=== PATIENT | male | born 1955 | race Caucasian/White ===

== ENCOUNTER 2017-08-08 13:34 | Inpatient (IN) | payer MEDICAID ==
--- NOTE | 2017-08-08 13:59 | ED Physician Chart ---
ED Chief Complaint/HPI - Patient Information Date Seen:: 08/08/17 Time Seen:: 13:40 Chief Complaint:: AMS History of Present Illness:: onset x 2 days of cough, congestion, AMS, fever, and ALOC with abnormal labs last night; no report of trauma, H/As, S/T, neck pain, C/P, SOB, Abd. Pain, A/N/ V/D/C, chills, or urinary s/s; pt also has poor oral intake and failure to thrive x 3 days Historian:: Patient, EMS Review:: Nurse's Note Reviewed, EMS run form Reviewed ED Review of Systems - Review of Systems General/Constitutional: Fever, No chills, No weight loss, Weakness, No diaphoresis, No edema, No loss of appetite Skin: No skin lesions, No rash, No bruising Head: No headache, No light-headedness Eyes: No loss of vision, No pain, No diplopia ENT: No earache, No nasal drainage, No sore throat, No tinnitus Neck: No neck pain, No swelling, No thyromegaly, No stiffness, No mass noted Cardio Vascular: No chest pain, No palpitations, No PND, No orthopnea, No edema Pulmonary: No SOB, No cough, No sputum, No wheezing GI: No nausea, No vomiting, No diarrhea, No pain, No melena, No hematochezia, No constipation, No hematemesis G/U: No dysuria, No frequency, No hematuria, No nacturia Musculoskeletal: No bone or joint pain, No back pain, No muscle pain Endocrine: No polyuria, No polydipsia Psychiatric: No prior psych history, No depression, No anxiety, No suicidal ideation, No homicidal ideation, No auditory hallucination, No visual hallucination Hematopoietic: No bruising, No lymphadenopathy Allergic/Immuno: No urticaria, No angioedema Neurological: No syncope, No focal symptoms, Weakness, No paresthesia, No headache, No seizure, No dizziness, Confusion, No vertigo ED Past Medical History - Past Medical History Obtainable: Yes Past Medical History: HTN, PUD/GERD, Dementia, Other (Alzheimer's Disease) Family History: HTN Social History: Non Smoker, No Alcohol, No Drug Use, , Care Facility Surgical History: other (Tracheostomy) Psychiatricy History: Dementia Medication: Reviewed Family Medical History - Family Member Mother Living Status: ED Physical Exam - Physical Examination General/Constitutional: Awake, Well-developed, well-nourished, Alert, No distress, GCS 15, Non-toxic appearing, Ambulatory Head: Atraumatic Eyes: Lids, conjuctiva normal, PERRL, EOMI Skin: Nl inspection, No rash, No skin lesions, No ecchymosis, No lymphadenopathy Other Skin comments:: Poor turgor with dry MM ENMT: External ears, nose nl, TM canals nl, Nasal exam nl, Lips, teeth, gums nl , Oropharynx nl, Tonsils nl Neck: Nontender, Full ROM w/o pain, No JVD, No nuchal rigidity, No bruit, No mass, No stridor Respiratory: Nl effort/Exclusion, Clear to Auscultation, No Wheeze/Rhonchi/Rales Cardio Vascular: RRR, No murmur, gallop, rubs, NL S1 S2, Carotid/Femoral/Distal pulses equal bilaterally GI: No tenderness/rebounding/guarding, No organomegaly, No hernia, Normal BS's, Nondistended, No mass/bruits, No McBurney tenderness : No CVA tenderness Extremities: No tenderness or effusion, Full ROM, normal strength in all extremities, No edema, Normal digits & nails Neuro/Psych: DTR's symmetric, Normal sensory exam, Normal motor strength, Judgement/insight normal, Mood normal, Normal gait, No focal deficits Other Neuro/Psych comments:: Disoriented and Confused Misc: Normal back, No paraspinal tenderness ED Labs/Radiology/EKG Results - Lab Results Comments:: K+: 3.1 - Radiology Results Comments:: NAD - EKG Interpretations EKG Time:: 14:06 Rate & Rhythm: 74; NSR Comments:: PACs; non-specific st-t changes ED Septic Shock - . Is Septic Shock (SBP<90, OR Lactate>4 mmol\L) present?: No ED Reassessment (Disposition) - Reassessment Reassessment Condition:: Improved - Diagnosis Diagnosis:: Dx: Hypokalemia; Alzheimer's Disease; Dementia; Dehydration; Failure to Thrive; Poor Oral Intake; Sepsis; AMS; Lethargy - Aftercare/Follow up Instructions Aftercare/Follow-Up Instructions:: Counseled pt regarding lab results/diagnosis & need follow up, Counseled pt & family regarding lab results/diagnosis & need follow up - Patient Disposition Discharge/Transfer:: Acute Care w/in this hosp Accepting Physician:: Dr. Mojica Time Called:: 1600 Time Responded:: 16:00 Admitted to:: Med/Surg Spoke to:: Dr. Mojica Admitting Medical Physician:: Dr. Mojica Condition at Disposition:: Stable, Improved
--- NOTE | 2017-08-08 14:21 | Diagnostic Imaging Report ---
CHEST X-RAY: AP view INDICATION: pain COMPARISON: None FINDINGS: Suboptimal lung volume noted. There is no focal consolidation or pleural effusions The heart is normal in size. Mildly tortuous aorta is noted. Degenerative changes of the spine are noted. Gas-filled loops of bowel the upper abdomen are noted. An internal biliary stent is noted. IMPRESSION: Suboptimal lung with no focal consolidation identified.
[2017-08-08 14:33] LABS: % BASOPHILS 0.2 % (0.0-2.0); % EOSINOPHILS 0.3 % (0.0-5.0); % LYMPHOCYTES 15.1 % (20.0-50.0); % MONOCYTES 8.5 % (2.0-10.0); % NEUTROPHILS 75.9 % (40.0-80.0); LYMPHOCYTE ABSOLUTE 1.4 Th/cmm (1.5-3.0); MEAN CELL VOLUME 89.3 fl (80-99); MEAN CORPUSCULAR HEMOGLOBIN 29.7 pg (26.0-30.0); MEAN CORPUSCULAR HGB CONC 33.2 pg (28.0-36.0); MONOCYTE ABSOLUTE 0.8 Th/cmm (0.3-1.0); PLATELET COUNT 211 Th/cmm (150-400); RED BLOOD COUNT 4.03 Mil/cmm (4.30-5.70); RED CELL DISTRIBUTION WIDTH 15.4 % (11.5-20.0); WHITE BLOOD COUNT 9.2 Th/cmm (4.8-10.8)
[2017-08-08 14:45] LABS: INR 1.09 (0.5-1.4); PROTHROMBIN TIME (TEST) 11.4 SECONDS (9.5-11.5)
[2017-08-08 14:48] LABS: ALKALINE PHOSPHATASE 41 U/L (34-104); ANION GAP 9.2 (7.0-16.0); BILIRUBIN,TOTAL 0.6 mg/dL (0.3-1.0); BUN - UREA NITROGEN 17 mg/dL (7-25); CALCIUM SERUM 8.1 mg/dL (8.6-10.3); CARBON DIOXIDE 21.9 mEq/L (21.0-31.0); CHLORIDE 111 mEq/L (98-107); CHOLESTEROL 103 mg/dL (<200); CREATININE - SERUM 0.5 mg/dL (0.7-1.3); CREATININE KINASE 22 U/L (30-223); GFR AFRICAN-AMERICAN > 60.0 ml/min (>90); GFR NON AFRICAN-AMERICAN > 60.0 ml/min; GLUCOSE 137 mg/dL (70-105); HDL -HIGH DENSITY LIPOPROTEIN 33 mg/dL (23-92); POTASSIUM SERUM 3.1 mEq/L (3.5-5.1); SGOT 7 U/L (13-39); SGPT/ALT 6 U/L (7-52); SODIUM SERUM 139 mEq/L (136-145); TOTAL PROTEIN,SERUM 6.1 gm/dL (6.0-8.3); TRIGLYCERIDES 105 mg/dL (<150)
[2017-08-08] MEDS ORDERED: Potassium Chloride 20 mEq ER Tab PO ONE (16:51)
[2017-08-08] MEDS ORDERED: cefTRIAXone 1 GM in Sodium Chloride 0.9% 50 ML IV ONE (17:01)
[2017-08-08] MEDS ORDERED: Potassium Chloride Elixir 20 mEq /15 mL UDC ONE (17:12)
[2017-08-08] MEDS ORDERED: Potassium Chloride Elixir 20 mEq /15 mL UDC PO ONE (17:15)
[2017-08-08 21:27] VITALS: BP 112/88
[2017-08-08] MEDS ORDERED: Albuterol/Ipratropium Neb 3 ML AERS HHN SCH (23:00)
--- NOTE | 2017-08-08 23:58 | History & Physical ---
ADMIT DATE: 08/08/2017 HISTORY OF PRESENT ILLNESS: The patient apparently was sent from [facility]. They called me complaining that he has lost about 24 pounds less than a month and the patient complaining of cough, abdominal discomfort, and no chest pain, no other problem, was worked up in the Emergency Room and was admitted. REVIEW OF SYSTEMS: Essentially negative except for losing weight and failure to thrive. PAST MEDICAL HISTORY: Hypertension and history of dementia. PHYSICAL EXAMINATION: GENERAL: The patient is awake, alert, not in acute distress. VITAL SIGNS: Stable. HEAD: Normal. ENT: Normal. NECK: Supple and nontender. LUNGS: Clear. CARDIOVASCULAR SYSTEM: S1 and S2 heard. ABDOMEN: Soft. Bowel sounds are heard. CENTRAL NERVOUS SYSTEM: Grossly normal. LABORATORY DATA: The patient's EKG showed normal sinus rhythm. Potassium was low. DIAGNOSES: Hypokalemia, electrolyte imbalance, Alzheimer disease, dementia, dehydration, failure to thrive. PLAN: The patient is going to be worked up. We will have a neuro workup. We will have Psych see the patient as well as GI see the patient and I will follow the patient. JOB# [id number]
--- NOTE | 2017-08-09 04:24 | Consultation ---
DATE OF CONSULTATION: 08/08/2017 INFECTIOUS DISEASE CONSULTATION REFERRING PHYSICIAN: Sandy Mojica M.D. REASON FOR CONSULTATION: Failure to thrive, cough, bronchitis. HISTORY OF PRESENT ILLNESS: The patient is a 62-year-old male with past medical history of Alzheimer's disease, dementia, hypertension, brought in from nursing facility for failure to thrive.. He lost around 24 pounds in less than one month. The patient also complained of cough with abdominal comfortable. On initial evaluation, the patient's temperature was 97.6 degrees Fahrenheit and WBC count was 9200. Chest x-ray showed no focal consolidation. The patient's stated that the patient went to different hospital and his health is deteriorating significantly. PAST MEDICAL HISTORY: Includes hypertension, Alzheimer's dementia. ALLERGIES: NKDA. MEDICATIONS: As per medication reconciliation sheet. Antibiotic riddle, the patient has received Rocephin 1 g one dose. FAMILY HISTORY: Not available. SOCIAL HISTORY: The patient lives in a nursing facility, . No history of smoking, alcohol or drug use. PAST SURGICAL HISTORY: History of tracheostomy in the past. REVIEW OF SYSTEMS: The patient is unable to give any history only complaints are the patient is not eating well and losing weight. PHYSICAL EXAMINATION: VITAL SIGNS: Current vital signs shows temperature is 98 degrees Fahrenheit, pulse 74, respirations 18, blood pressure 112/88. GENERAL: The patient is comfortable lying in the bed, the patient's cachectic, not in acute distress. HEENT: Head is normocephalic, atraumatic. Bitemporal wasting. Sunken eyeball. Oral cavity moist, pink tongue. Eyes sunken eyeball. No pallor, no icterus. Pupils PERRLA. NECK: Supple, no JVD, no carotid bruit. Trachea in midline. CHEST: Bilateral breath sounds. No crackles or wheezing. HEART: S1, S2 within normal limits. Regular rhythm. No murmur, no gallop. ABDOMEN: Soft, nontender, nondistended. Bowel sounds present. EXTREMITIES: No cyanosis, no clubbing, no edema. NEUROLOGIC: The patient is unable to communicate. LABORATORY DATA: His current labs show WBC 9200, hemoglobin 12, hematocrit 36, platelets are 211,000, neutrophils 76%. INR 1.09, sodium 139, potassium 3.1, chloride 111, bicarbonate is 22, BUN is 17, creatinine is 0.5, glucose is 137. IMPRESSION: 1. Failure to thrive. 2. Protein-calorie malnutrition. 3. History of hypertension. 4. Bronchitis. RECOMMENDATIONS: We will check RPR, vitamin B12, TSH, and HIV. JOB# [id number]
[2017-08-09 07:26] LABS: % BASOPHILS 0.2 % (0.0-2.0); % EOSINOPHILS 0.5 % (0.0-5.0); % LYMPHOCYTES 20.3 % (20.0-50.0); % MONOCYTES 9.3 % (2.0-10.0); % NEUTROPHILS 69.7 % (40.0-80.0); HEMATOCRIT 37.2 % (41.0-60); HEMOGLOBIN 12.4 gm/dL (12-16); LYMPHOCYTE ABSOLUTE 1.8 Th/cmm (1.5-3.0); MEAN CELL VOLUME 89.5 fl (80-99); MEAN CORPUSCULAR HEMOGLOBIN 29.8 pg (26.0-30.0); MEAN CORPUSCULAR HGB CONC 33.3 pg (28.0-36.0); MEAN PLATELET VOLUME 10.5 fl; MONOCYTE ABSOLUTE 0.8 Th/cmm (0.3-1.0); NEUTROPHILE ABSOLUTE 6.3 Th/cmm (1.8-8.0); PLATELET COUNT 188 Th/cmm (150-400); RED BLOOD COUNT 4.15 Mil/cmm (4.30-5.70); RED CELL DISTRIBUTION WIDTH 15.1 % (11.5-20.0); WHITE BLOOD COUNT 8.9 Th/cmm (4.8-10.8)
[2017-08-09 07:42] LABS: ANION GAP 9.2 (7.0-16.0); BUN - UREA NITROGEN 13 mg/dL (7-25); CALCIUM SERUM 8.6 mg/dL (8.6-10.3); CARBON DIOXIDE 24.5 mEq/L (21.0-31.0); CHLORIDE 112 mEq/L (98-107); CHOLESTEROL 113 mg/dL (<200); CREATININE - SERUM 0.5 mg/dL (0.7-1.3); GFR AFRICAN-AMERICAN > 60.0 ml/min (>90); GFR NON AFRICAN-AMERICAN > 60.0 ml/min; GLUCOSE 87 mg/dL (70-105); HDL -HIGH DENSITY LIPOPROTEIN 36 mg/dL (23-92); POTASSIUM SERUM 3.7 mEq/L (3.5-5.1); SODIUM SERUM 142 mEq/L (136-145); TRIGLYCERIDES 103 mg/dL (<150)
--- NOTE | 2017-08-09 10:10 | General Progress Note ---
Subjective - Review of Systems Events since last encounter: in no acute distress patient admitted for failure to thrive, cough, bronchitis Objective - Results Result Diagrams: 08/09/17 06:16 08/09/17 06:16 Recent Labs: Laboratory Last Values WBC 8.9 Th/cmm (4.8-10.8) 08/09/17 06:16 RBC 4.15 Mil/cmm (4.30-5.70) L 08/09/17 06:16 Hgb 12.4 gm/dL (12-16) 08/09/17 06:16 Hct 37.2 % (41.0-60) L 08/09/17 06:16 MCV 89.5 fl (80-99) 08/09/17 06:16 MCH 29.8 pg (26.0-30.0) 08/09/17 06:16 MCHC Differential 33.3 pg (28.0-36.0) 08/09/17 06:16 RDW 15.1 % (11.5-20.0) 08/09/17 06:16 Plt Count 188 Th/cmm (150-400) 08/09/17 06:16 MPV 10.5 fl 08/09/17 06:16 Neutrophils % 69.7 % (40.0-80.0) 08/09/17 06:16 Lymphocytes % 20.3 % (20.0-50.0) 08/09/17 06:16 Monocytes % 9.3 % (2.0-10.0) 08/09/17 06:16 Eosinophils % 0.5 % (0.0-5.0) 08/09/17 06:16 Basophils % 0.2 % (0.0-2.0) 08/09/17 06:16 PT 11.4 SECONDS (9.5-11.5) 08/08/17 14:20 INR 1.09 (0.5-1.4) 08/08/17 14:20 PTT (Actin FS) 30.6 SECONDS (26.0-38.0) 08/08/17 14:20 Sodium 142 mEq/L (136-145) 08/09/17 06:16 Potassium 3.7 mEq/L (3.5-5.1) 08/09/17 06:16 Chloride 112 mEq/L (98-107) H 08/09/17 06:16 Carbon Dioxide 24.5 mEq/L (21.0-31.0) 08/09/17 06:16 Anion Gap 9.2 (7.0-16.0) 08/09/17 06:16 BUN 13 mg/dL (7-25) 08/09/17 06:16 Creatinine 0.5 mg/dL (0.7-1.3) L 08/09/17 06:16 Est GFR ( Amer) > 60.0 ml/min (>90) 08/09/17 06:16 Est GFR (Non-Af Amer) > 60.0 ml/min 08/09/17 06:16 BUN/Creatinine Ratio 26.0 08/09/17 06:16 Glucose 87 mg/dL (70-105) 08/09/17 06:16 Whole Bld Lactic Acid 1.60 mmol/L (0.60-1.99) 08/08/17 14:20 Calcium 8.6 mg/dL (8.6-10.3) 08/09/17 06:16 Total Bilirubin 0.6 mg/dL (0.3-1.0) 08/08/17 14:20 AST 7 U/L (13-39) L 08/08/17 14:20 ALT 6 U/L (7-52) L 08/08/17 14:20 Alkaline Phosphatase 41 U/L (34-104) 08/08/17 14:20 Creatine Kinase 22 U/L (30-223) L 08/08/17 14:20 Troponin I 0.01 ng/mL (0.01-0.05) 08/08/17 14:20 B-Natriuretic Peptide 18.3 pg/mL (5.0-100.0) 08/08/17 14:20 Total Protein 6.1 gm/dL (6.0-8.3) 08/08/17 14:20 Albumin 3.0 gm/dL (4.2-5.5) L 08/08/17 14:20 Globulin 3.1 gm/dL 08/08/17 14:20 Albumin/Globulin Ratio 1.0 (1.0-1.8) 08/08/17 14:20 Triglycerides 103 mg/dL (<150) 08/09/17 06:16 Cholesterol 113 mg/dL (<200) 08/09/17 06:16 LDL Cholesterol Direct 65 mg/dL (75-193) L 08/09/17 06:16 HDL Cholesterol 36 mg/dL (23-92) 08/09/17 06:16 TSH 0.37 uIU/ml (0.34-5.60) 08/09/17 06:16 - Physical Exam Vitals and I&O: Vital Signs Temp 96.4 F 08/09/17 07:43 Pulse 83 08/09/17 07:43 Resp 17 08/09/17 07:43 BP 165/86 08/09/17 07:43 Pulse Ox 94 08/09/17 07:43 Intake & Output 08/08/17 08/09/17 08/09/17 18:59 06:59 18:59 Intake Total 100 120 Balance 100 120 Weight (lbs) 58.202 kg Intake: Intake, IV Amount 100 Oral 120 Other: # Voids 3 Active Medications: Current Medications Acetaminophen (Tylenol) 650 mg PO Q4H PRN PRN Reason: pain/fever >101 Stop: 10/07/17 19:38 Albuterol/Ipratropium (Duoneb Neb) 3 ml HHN Q4HRT DAO Stop: 10/07/17 22:59 Diphenhydramine HCl (Benadryl) 25 mg PO QID PRN PRN Reason: Itching OR INSOMNIA Stop: 10/07/17 19:37 Last Admin: 08/08/17 20:13 Dose: 25 mg General: No acute distress HEENT: Atraumatic Neck: Supple Cardiovascular: Regular rate, Normal S1 Abdomen: Bowel sounds Assessment/Plan - Problem List Patient Problems: All Active Problems Alzheimer disease (Acute) G30.9 Dehydration (Acute) E86.0 Dementia (Acute) F03.90 Electrolyte abnormality (Acute) E87.8 Failure to thrive (Acute) [id number] Hypokalemia (Acute) E87.6 - Plan Plan: as per order sheet
--- NOTE | 2017-08-10 | Infectious Disease Prog Note ---
Infectious Disease Subjective - Review of Systems Service Date: 08/09/17 Subjective: no change. Infectious Disease Objective - Results Result Diagrams: 08/09/17 06:16 08/09/17 06:16 Recent Labs: Laboratory Last Values WBC 8.9 Th/cmm (4.8-10.8) 08/09/17 06:16 RBC 4.15 Mil/cmm (4.30-5.70) L 08/09/17 06:16 Hgb 12.4 gm/dL (12-16) 08/09/17 06:16 Hct 37.2 % (41.0-60) L 08/09/17 06:16 MCV 89.5 fl (80-99) 08/09/17 06:16 MCH 29.8 pg (26.0-30.0) 08/09/17 06:16 MCHC Differential 33.3 pg (28.0-36.0) 08/09/17 06:16 RDW 15.1 % (11.5-20.0) 08/09/17 06:16 Plt Count 188 Th/cmm (150-400) 08/09/17 06:16 MPV 10.5 fl 08/09/17 06:16 Neutrophils % 69.7 % (40.0-80.0) 08/09/17 06:16 Lymphocytes % 20.3 % (20.0-50.0) 08/09/17 06:16 Monocytes % 9.3 % (2.0-10.0) 08/09/17 06:16 Eosinophils % 0.5 % (0.0-5.0) 08/09/17 06:16 Basophils % 0.2 % (0.0-2.0) 08/09/17 06:16 PT 11.4 SECONDS (9.5-11.5) 08/08/17 14:20 INR 1.09 (0.5-1.4) 08/08/17 14:20 PTT (Actin FS) 30.6 SECONDS (26.0-38.0) 08/08/17 14:20 Sodium 142 mEq/L (136-145) 08/09/17 06:16 Potassium 3.7 mEq/L (3.5-5.1) 08/09/17 06:16 Chloride 112 mEq/L (98-107) H 08/09/17 06:16 Carbon Dioxide 24.5 mEq/L (21.0-31.0) 08/09/17 06:16 Anion Gap 9.2 (7.0-16.0) 08/09/17 06:16 BUN 13 mg/dL (7-25) 08/09/17 06:16 Creatinine 0.5 mg/dL (0.7-1.3) L 08/09/17 06:16 Est GFR ( Amer) > 60.0 ml/min (>90) 08/09/17 06:16 Est GFR (Non-Af Amer) > 60.0 ml/min 08/09/17 06:16 BUN/Creatinine Ratio 26.0 08/09/17 06:16 Glucose 87 mg/dL (70-105) 08/09/17 06:16 Whole Bld Lactic Acid 1.60 mmol/L (0.60-1.99) 08/08/17 14:20 Calcium 8.6 mg/dL (8.6-10.3) 08/09/17 06:16 Total Bilirubin 0.6 mg/dL (0.3-1.0) 08/08/17 14:20 AST 7 U/L (13-39) L 08/08/17 14:20 ALT 6 U/L (7-52) L 08/08/17 14:20 Alkaline Phosphatase 41 U/L (34-104) 08/08/17 14:20 Creatine Kinase 22 U/L (30-223) L 08/08/17 14:20 Troponin I 0.01 ng/mL (0.01-0.05) 08/08/17 14:20 B-Natriuretic Peptide 18.3 pg/mL (5.0-100.0) 08/08/17 14:20 Total Protein 6.1 gm/dL (6.0-8.3) 08/08/17 14:20 Albumin 3.0 gm/dL (4.2-5.5) L 08/08/17 14:20 Globulin 3.1 gm/dL 08/08/17 14:20 Albumin/Globulin Ratio 1.0 (1.0-1.8) 08/08/17 14:20 Triglycerides 103 mg/dL (<150) 08/09/17 06:16 Cholesterol 113 mg/dL (<200) 08/09/17 06:16 LDL Cholesterol Direct 65 mg/dL (75-193) L 08/09/17 06:16 HDL Cholesterol 36 mg/dL (23-92) 08/09/17 06:16 TSH 0.37 uIU/ml (0.34-5.60) 08/09/17 06:16 - Physical Exam Vitals and I&O: Vital Signs Temp 99.4 F 08/09/17 20:00 Pulse 98 08/09/17 20:00 Resp 18 08/09/17 20:00 BP 108/80 08/09/17 20:00 Pulse Ox 99 08/09/17 20:00 Intake & Output 08/09/17 08/09/17 08/10/17 06:59 18:59 06:59 Intake Total 120 400 Balance 120 400 Weight (lbs) 58.202 kg 58.202 kg Intake: Oral 120 400 Other: # Voids 3 3 Active Medications: Current Medications Acetaminophen (Tylenol) 650 mg PO Q4H PRN PRN Reason: pain/fever >101 Stop: 10/07/17 19:38 Albuterol/Ipratropium (Duoneb Neb) 3 ml HHN Q4HRT DAO Stop: 10/07/17 22:59 Diphenhydramine HCl (Benadryl) 25 mg PO QID PRN PRN Reason: Itching OR INSOMNIA Stop: 10/07/17 19:37 Last Admin: 08/09/17 21:29 Dose: 25 mg General: no acute distress, well developed, well nourished HEENT: atraumatic, normocephalic, PERRLA, EOMI, moist mucous membrane Neck: supple, no thyromegaly Cardiovascular: S1S2, regular Lungs: clear to auscultation bilaterally, clear to percussion Abdomen: soft, no tender, no distended, no rebound Extremities: no cyanosis, no clubbing, no edema Neurological: awake, alert, oriented Skin: intact Infectious Disease Assmt/Plan - Problem List Patient Problems: All Active Problems Alzheimer disease (Acute) G30.9 Dehydration (Acute) E86.0 Dementia (Acute) F03.90 Electrolyte abnormality (Acute) E87.8 Failure to thrive (Acute) [id number] Hypokalemia (Acute) E87.6 - Assessment Assessment: 1. Failure to thrive. 2. Protein-calorie malnutrition. 3. History of hypertension. 4. Bronchitis. - Plan Plan: CPM. Nutritional Asmnt/Malnutr-PDOC - Dietary Evaluation Malnutrition Findings (Please click <Entered> for more info): Nutritional Asmnt/Malnutrition Start: 08/09/17 16: 50 Text: Status: Active Freq: Document 08/09/17 16:50 AVELINO (Rec: 08/09/17 17:02 AVELINO [email or web address]) Nutritional Asmnt/Malnutrition Patient General Information Nutritional Screening High Risk Consult Diagnosis hypokalemia, dementia, FTT, lethargy Pertinent Medical Hx/Surgical Hx HTN, PUD/GERD, dementia, alzheimer/s, Tracheostomy Subjective Information Pt seen lying in bed, at bedside assisting with lunch. reported pt was eating ok , consumed 100% of breakfast this morning. Current Diet Order/ Nutrition Support pureed, ensure TID with meals, honey thick liquid Pertinent Medications duoneb Pertinent Labs 08/09 Na 142, K 3.7, Cl 112, BUN 13, Cr 0.5, Glucose 87, Ca 8.6 Nutritional Hx/Data Height 1.8 m Height (Calculated Centimeters) 180.3 Current Weight (lbs) 58.196 kg Weight (Calculated Kilograms) 58.2 Weight (Calculated Grams) 54810.9 [place] Body Weight 172 % [place] Body Weight 75 Body Mass Index (BMI) 17.9 Weight Status Underweight GI Symptoms GI Symptoms None Last BM no record Difficult in: None Skin Integrity/Comment: scar to coccyx Estimated Nutritional Goals BEE in Kcals: Using Current wt Calories/Kcals/Kg 30-35 Kcals Calculated 8700-4828 Protein: Using Current wt Protein g/k.2 Protein Calculated 70-81 Fluid: ml 1745-2030ml (1ml/kcal) Nutritional Problem 1. Problem Problem underweight Etiology possible poor PO intake d/t illness Signs/Symptoms: BMI 17.9 Malnutrition Alert Body Fat Depletion (Non-Severe) Mild Depletion Intervention/Recommendation Comments 1. Continue with current diet as ordered. Encouraged calorie dense food for gradual wt gain. 2. Monitor PO intake, wt, labs and skin integrity 3. F/U as high risk in 2-3 days, 08/11-08/12 Expected Outcomes/Goals Expected Outcomes/Goals 1. PO intake to meet at least 75% of nutritional needs. 2. Wt stability or change toward to IBW, skin to remain intact, labs to approach WNL.
--- NOTE | 2017-08-10 07:39 | Consultation ---
DATE OF CONSULTATION: 08/09/2017 INPATIENT GASTROINTESTINAL CONSULTATION CONSULTING PHYSICIAN: Dr. Mojica. REASON FOR CONSULTATION: Weight loss. HISTORY OF PRESENT ILLNESS: The patient is a 62-year-old male with history of Alzheimer's dementia, hypertension, choledocholithiasis who is admitted to the hospital with acute weight loss from [facility]. Most of the history is obtained from the chart and from the patient's as the patient is largely nonverbal at this time. As per the patient's , he has been struggling over the past year with worsening Alzheimer's dementia as well as with choledocholithiasis and cholecystitis issues. The patient's notes that he has been seen at [facility] as well as [facility] and [facility] and that there was a plan to ERCP and remove a large common bile duct stones and take out his gallbladder, although this was on hold pending insurance approval and this was going to be done at [facility] as per the patient's . He does have a current stent in place already which was also put at either [facility] or [facility] as per the patient's . However, the issue now is that the patient has stopped volitionally eating very much and has lost about 25 pounds over the past month. The patient's reports that he does not appear to be in discomfort. He just does not want to eat and has trouble swallowing. There is no documented history of melena, hematochezia or hematemesis. PAST MEDICAL HISTORY: Alzheimer's dementia, progressive hypertension, choledocholithiasis. PAST SURGICAL HISTORY: Previous ERCPs with common bile duct stenting as well as a knee replacement. FAMILY HISTORY: Noncontributory. SOCIAL HISTORY: The patient used to drink and smoke, but this was stopped when Alzheimer's dementia was diagnosed 7 years ago. REVIEW OF SYSTEMS: Not possible given the patient's mental status. CURRENT MEDICATIONS: Tylenol, albuterol, Benadryl, ceftriaxone. PHYSICAL EXAMINATION: VITAL SIGNS: The blood pressure is 165/86, temperature 96.4, pulse of 83 beats per minute, respiratory rate 17, oxygenation is 94%. GENERAL: The patient is lying at 30 degrees. Alert and oriented x0. He appears cachectic. HEAD, EYES, EARS, NOSE AND THROAT: Normocephalic, atraumatic. Had although there is temporal wasting. Pupils are equal and reactive to light. Extraocular muscles do appear to be intact with dry mucous membranes. NECK: Supple, no JVD, no thyromegaly, no lymphadenopathy. CHEST: Clear to auscultation. CARDIOVASCULAR: S1, S2 present. Regular rate and rhythm. ABDOMEN: Very thin, soft, nontender. No obvious guarding or rebound. EXTREMITIES: Very thin. No obvious pitting edema. Pulses are present. SKIN: No jaundice this time. LABORATORY DATA: White blood cell count 8.9, hemoglobin 12.4, platelet count 188. INR 1.09, sodium 142, BUN 0.5, AST 7, ALT 6, total bilirubin 0.6, troponin 0.01. TSH 0.37, no abdominal imaging has been performed. IMPRESSION: This is a 62-year-old male with Alzheimer's dementia, which has been progressive, previous choledocholithiasis with common bile duct stent, who is admitted to the hospital with 25-pound weight loss over the past month. 1. Progressive Alzheimer's dementia. 2. Choledocholithiasis common bile duct stent. 3. Dysphagia. 4. Anorexia, failure to thrive. DISCUSSION: It appears that the acute weight loss over the past month is likely due to progression of his Alzheimer dementia, which is what the patient's also is thinking. We had a long discussion today about the prospect of putting in a G-tube or alternatively putting an NG tube for alternative means of nutrition, but the patient's at this point does not want to subject the patient to these procedures. She understands that he is likely unable to gain function on his own and he is likely not able to take in adequate nutrition on his own. At this point, given his disease progression and that he likely will not do well make any sort of recovery without better enteral nutrition. However, she also understands that even with enteral nutrition access this will improve his mental status or his Alzheimer's dementia. In terms of the choledocholithiasis by history, it appears that he still has stones in the common bile duct, although a stent is in place and his LFTs are normal. There is plan for him to possibly have ERCP with lithotripsy and replacement of the stent at [facility], although this may not need to happen if the patient's ends up putting him on hospice. RECOMMENDATION: 1. The patient's is not want willing to consent for G-tube placement or even NG placement at this time and thus this is not planned. She also does not want endoscopy given his overall condition and the suffering that he is already endured. Thus, no endoscopic procedures will be planned for this patient. 2. If the patient's changes her mind, we are available to put in a G-tube. 3. No ERCP at this time. If the patient's wants to go forward with all of this, it should be done over at [facility] as it appears that the stones are large and likely will need advance maneuvers. GI will see the patient as needed or if the patient's does desire G-tube. Please call us with any other questions. [facility]# [id number]
[2017-08-10] MEDS ORDERED: D5-0.25NS 1,000 ML IV SCH (09:52)
--- NOTE | 2017-08-10 10:34 | Infectious Disease Prog Note ---
Infectious Disease Subjective - Review of Systems Service Date: 08/10/17 Subjective: no change. Infectious Disease Objective - Results Result Diagrams: 08/09/17 06:16 08/09/17 06:16 Recent Labs: Laboratory Last Values WBC 8.9 Th/cmm (4.8-10.8) 08/09/17 06:16 RBC 4.15 Mil/cmm (4.30-5.70) L 08/09/17 06:16 Hgb 12.4 gm/dL (12-16) 08/09/17 06:16 Hct 37.2 % (41.0-60) L 08/09/17 06:16 MCV 89.5 fl (80-99) 08/09/17 06:16 MCH 29.8 pg (26.0-30.0) 08/09/17 06:16 MCHC Differential 33.3 pg (28.0-36.0) 08/09/17 06:16 RDW 15.1 % (11.5-20.0) 08/09/17 06:16 Plt Count 188 Th/cmm (150-400) 08/09/17 06:16 MPV 10.5 fl 08/09/17 06:16 Neutrophils % 69.7 % (40.0-80.0) 08/09/17 06:16 Lymphocytes % 20.3 % (20.0-50.0) 08/09/17 06:16 Monocytes % 9.3 % (2.0-10.0) 08/09/17 06:16 Eosinophils % 0.5 % (0.0-5.0) 08/09/17 06:16 Basophils % 0.2 % (0.0-2.0) 08/09/17 06:16 PT 11.4 SECONDS (9.5-11.5) 08/08/17 14:20 INR 1.09 (0.5-1.4) 08/08/17 14:20 PTT (Actin FS) 30.6 SECONDS (26.0-38.0) 08/08/17 14:20 Sodium 142 mEq/L (136-145) 08/09/17 06:16 Potassium 3.7 mEq/L (3.5-5.1) 08/09/17 06:16 Chloride 112 mEq/L (98-107) H 08/09/17 06:16 Carbon Dioxide 24.5 mEq/L (21.0-31.0) 08/09/17 06:16 Anion Gap 9.2 (7.0-16.0) 08/09/17 06:16 BUN 13 mg/dL (7-25) 08/09/17 06:16 Creatinine 0.5 mg/dL (0.7-1.3) L 08/09/17 06:16 Est GFR ( Amer) > 60.0 ml/min (>90) 08/09/17 06:16 Est GFR (Non-Af Amer) > 60.0 ml/min 08/09/17 06:16 BUN/Creatinine Ratio 26.0 08/09/17 06:16 Glucose 87 mg/dL (70-105) 08/09/17 06:16 Whole Bld Lactic Acid 1.60 mmol/L (0.60-1.99) 08/08/17 14:20 Calcium 8.6 mg/dL (8.6-10.3) 08/09/17 06:16 Total Bilirubin 0.6 mg/dL (0.3-1.0) 08/08/17 14:20 AST 7 U/L (13-39) L 08/08/17 14:20 ALT 6 U/L (7-52) L 08/08/17 14:20 Alkaline Phosphatase 41 U/L (34-104) 08/08/17 14:20 Creatine Kinase 22 U/L (30-223) L 08/08/17 14:20 Troponin I 0.01 ng/mL (0.01-0.05) 08/08/17 14:20 B-Natriuretic Peptide 18.3 pg/mL (5.0-100.0) 08/08/17 14:20 Total Protein 6.1 gm/dL (6.0-8.3) 08/08/17 14:20 Albumin 3.0 gm/dL (4.2-5.5) L 08/08/17 14:20 Globulin 3.1 gm/dL 08/08/17 14:20 Albumin/Globulin Ratio 1.0 (1.0-1.8) 08/08/17 14:20 Triglycerides 103 mg/dL (<150) 08/09/17 06:16 Cholesterol 113 mg/dL (<200) 08/09/17 06:16 LDL Cholesterol Direct 65 mg/dL (75-193) L 08/09/17 06:16 HDL Cholesterol 36 mg/dL (23-92) 08/09/17 06:16 Carcinoembryonic Ag 3.0 ng/mL (0.0-4.7) 08/09/17 06:16 Prostate Specific Ag 1.3 ng/mL (0.0-4.0) 08/09/17 06:16 TSH 0.37 uIU/ml (0.34-5.60) 08/09/17 06:16 RPR NONREACTIVE (NONREACTIVE) 08/09/17 06:16 - Physical Exam Vitals and I&O: Vital Signs Temp 98.5 F 08/10/17 04:00 Pulse 65 08/10/17 04:00 Resp 18 08/10/17 04:00 BP 117/68 08/10/17 04:00 Pulse Ox 95 08/10/17 04:00 Intake & Output 08/09/17 08/10/17 08/10/17 18:59 06:59 18:59 Intake Total 400 Balance 400 Weight (lbs) 58.202 kg 58.06 kg Intake: Oral 400 Other: # Voids 3 2 # Bowel Movements 2 Active Medications: Current Medications Acetaminophen (Tylenol) 650 mg PO Q4H PRN PRN Reason: pain/fever >101 Stop: 10/07/17 19:38 Albuterol/Ipratropium (Duoneb Neb) 3 ml HHN Q4HRT [facility] Stop: 10/07/17 22:59 Diphenhydramine HCl (Benadryl) 25 mg PO QID PRN PRN Reason: Itching OR INSOMNIA Stop: 10/07/17 19:37 Last Admin: 08/09/17 21:29 Dose: 25 mg Dextrose/Sodium Chloride (D5-0.25ns) 1,000 mls @ 50 mls/hr IV .Q20H [facility] Stop: 10/09/17 09:51 General: no acute distress, well developed HEENT: atraumatic, normocephalic, PERRLA Neck: supple, no thyromegaly Cardiovascular: S1S2, regular, irregular, no thrills Lungs: no clear to auscultation bilaterally, no clear to percussion, no wheeze Abdomen: soft, no tender, no distended, no hepatomegaly Extremities: no cyanosis, no clubbing, no edema Neurological: awake, alert Skin: intact, rash Infectious Disease Assmt/Plan - Problem List Patient Problems: All Active Problems Alzheimer disease (Acute) G30.9 Dehydration (Acute) E86.0 Dementia (Acute) F03.90 Electrolyte abnormality (Acute) E87.8 Failure to thrive (Acute) [id number] Hypokalemia (Acute) E87.6 - Assessment Assessment: 1. Failure to thrive. 2. Protein-calorie malnutrition. 3. History of hypertension. 4. Bronchitis. - Plan Plan: CPM. Nutritional Asmnt/Malnutr-PDOC - Dietary Evaluation Malnutrition Findings (Please click <Entered> for more info): Nutritional Asmnt/Malnutrition Start: 08/09/17 16: 50 Text: Status: Active Freq: Document 08/09/17 16:50 QUINTON (Rec: 08/09/17 17:02 QUINTON [email or web address]) Nutritional Asmnt/Malnutrition Patient General Information Nutritional Screening High Risk Consult Diagnosis hypokalemia, dementia, FTT, lethargy Pertinent Medical Hx/Surgical Hx HTN, PUD/GERD, dementia, alzheimer/s, Tracheostomy Subjective Information Pt seen lying in bed, at bedside assisting with lunch. reported pt was eating ok , consumed 100% of breakfast this morning. Current Diet Order/ Nutrition Support pureed, ensure TID with meals, honey thick liquid Pertinent Medications duoneb Pertinent Labs 08/09 Na 142, K 3.7, Cl 112, BUN 13, Cr 0.5, Glucose 87, Ca 8.6 Nutritional Hx/Data Height 1.8 m Height (Calculated Centimeters) 180.3 Current Weight (lbs) 58.196 kg Weight (Calculated Kilograms) 58.2 Weight (Calculated Grams) 12563.9 [place] Body Weight 172 % [place] Body Weight 75 Body Mass Index (BMI) 17.9 Weight Status Underweight GI Symptoms GI Symptoms None Last BM no record Difficult in: None Skin Integrity/Comment: scar to coccyx Estimated Nutritional Goals BEE in Kcals: Using Current wt Calories/Kcals/Kg 30-35 Kcals Calculated 5368-3444 Protein: Using Current wt Protein g/k.2 Protein Calculated 70-81 Fluid: ml 1745-2030ml (1ml/kcal) Nutritional Problem 1. Problem Problem underweight Etiology possible poor PO intake d/t illness Signs/Symptoms: BMI 17.9 Malnutrition Alert Body Fat Depletion (Non-Severe) Mild Depletion Intervention/Recommendation Comments 1. Continue with current diet as ordered. Encouraged calorie dense food for gradual wt gain. 2. Monitor PO intake, wt, labs and skin integrity 3. F/U as high risk in 2-3 days, 08/11-08/12 Expected Outcomes/Goals Expected Outcomes/Goals 1. PO intake to meet at least 75% of nutritional needs. 2. Wt stability or change toward to IBW, skin to remain intact, labs to approach WNL.
[2017-08-10] MEDS ORDERED: Sodium Chloride 0.9% 1,000 ML IV ONE (18:29)
[2017-08-10] MEDS: D5-0.45NS 1,000 ML IV SCH (20:48)
[2017-08-11 05:46] LABS: % BASOPHILS 0.1 % (0.0-2.0); % LYMPHOCYTES 26.2 % (20.0-50.0); % MONOCYTES 8.1 % (2.0-10.0); % NEUTROPHILS 64.6 % (40.0-80.0); EOSINOPHILE ABSOLUTE 0.1 Th/cmm (0.1-0.4); HEMATOCRIT 35.1 % (41.0-60); HEMOGLOBIN 11.8 gm/dL (12-16); LYMPHOCYTE ABSOLUTE 1.9 Th/cmm (1.5-3.0); MEAN CELL VOLUME 90.5 fl (80-99); MEAN CORPUSCULAR HEMOGLOBIN 30.5 pg (26.0-30.0); MEAN CORPUSCULAR HGB CONC 33.7 pg (28.0-36.0); MEAN PLATELET VOLUME 10.9 fl; MONOCYTE ABSOLUTE 0.6 Th/cmm (0.3-1.0); NEUTROPHILE ABSOLUTE 4.5 Th/cmm (1.8-8.0); RED BLOOD COUNT 3.88 Mil/cmm (4.30-5.70); RED CELL DISTRIBUTION WIDTH 15.5 % (11.5-20.0)
[2017-08-11 06:03] LABS: ANION GAP 5.3 (7.0-16.0); BUN - UREA NITROGEN 10 mg/dL (7-25); CALCIUM SERUM 8.1 mg/dL (8.6-10.3); CARBON DIOXIDE 26.3 mEq/L (21.0-31.0); CHLORIDE 114 mEq/L (98-107); CREATININE - SERUM 0.3 mg/dL (0.7-1.3); GFR AFRICAN-AMERICAN > 60.0 ml/min (>90); GFR NON AFRICAN-AMERICAN > 60.0 ml/min; GLUCOSE 99 mg/dL (70-105); POTASSIUM SERUM 3.6 mEq/L (3.5-5.1); SODIUM SERUM 142 mEq/L (136-145)
[2017-08-11] MEDS: D5-0.45NS 1,000 ML IV SCH (06:06)
[2017-08-11 06:28] LABS: PLATELET COUNT 242 Th/cmm (150-400); WHITE BLOOD COUNT 7.1 Th/cmm (4.8-10.8)
--- NOTE | 2017-08-11 08:52 | Infectious Disease Prog Note ---
Infectious Disease Subjective - Review of Systems Service Date: 08/11/17 Subjective: no change. Infectious Disease Objective - Results Result Diagrams: 08/11/17 05:30 08/11/17 05:30 Recent Labs: Laboratory Last Values WBC 7.1 Th/cmm (4.8-10.8) D 08/11/17 05:30 RBC 3.88 Mil/cmm (4.30-5.70) L 08/11/17 05:30 Hgb 11.8 gm/dL (12-16) L 08/11/17 05:30 Hct 35.1 % (41.0-60) L 08/11/17 05:30 MCV 90.5 fl (80-99) 08/11/17 05:30 MCH 30.5 pg (26.0-30.0) H 08/11/17 05:30 MCHC Differential 33.7 pg (28.0-36.0) 08/11/17 05:30 RDW 15.5 % (11.5-20.0) 08/11/17 05:30 Plt Count 242 Th/cmm (150-400) D 08/11/17 05:30 MPV 10.9 fl 08/11/17 05:30 Neutrophils % 64.6 % (40.0-80.0) 08/11/17 05:30 Lymphocytes % 26.2 % (20.0-50.0) 08/11/17 05:30 Monocytes % 8.1 % (2.0-10.0) 08/11/17 05:30 Eosinophils % 1.0 % (0.0-5.0) 08/11/17 05:30 Basophils % 0.1 % (0.0-2.0) 08/11/17 05:30 PT 11.4 SECONDS (9.5-11.5) 08/08/17 14:20 INR 1.09 (0.5-1.4) 08/08/17 14:20 PTT (Actin FS) 30.6 SECONDS (26.0-38.0) 08/08/17 14:20 Sodium 142 mEq/L (136-145) 08/11/17 05:30 Potassium 3.6 mEq/L (3.5-5.1) 08/11/17 05:30 Chloride 114 mEq/L (98-107) H 08/11/17 05:30 Carbon Dioxide 26.3 mEq/L (21.0-31.0) 08/11/17 05:30 Anion Gap 5.3 (7.0-16.0) L 08/11/17 05:30 BUN 10 mg/dL (7-25) 08/11/17 05:30 Creatinine 0.3 mg/dL (0.7-1.3) L 08/11/17 05:30 Est GFR ( Amer) > 60.0 ml/min (>90) 08/11/17 05:30 Est GFR (Non-Af Amer) > 60.0 ml/min 08/11/17 05:30 BUN/Creatinine Ratio 33.3 08/11/17 05:30 Glucose 99 mg/dL (70-105) 08/11/17 05:30 Whole Bld Lactic Acid 1.60 mmol/L (0.60-1.99) 08/08/17 14:20 Calcium 8.1 mg/dL (8.6-10.3) L 08/11/17 05:30 Total Bilirubin 0.6 mg/dL (0.3-1.0) 08/08/17 14:20 AST 7 U/L (13-39) L 08/08/17 14:20 ALT 6 U/L (7-52) L 08/08/17 14:20 Alkaline Phosphatase 41 U/L (34-104) 08/08/17 14:20 Creatine Kinase 22 U/L (30-223) L 08/08/17 14:20 Troponin I 0.01 ng/mL (0.01-0.05) 08/08/17 14:20 B-Natriuretic Peptide 18.3 pg/mL (5.0-100.0) 08/08/17 14:20 Total Protein 6.1 gm/dL (6.0-8.3) 08/08/17 14:20 Albumin 3.0 gm/dL (4.2-5.5) L 08/08/17 14:20 Globulin 3.1 gm/dL 08/08/17 14:20 Albumin/Globulin Ratio 1.0 (1.0-1.8) 08/08/17 14:20 Triglycerides 103 mg/dL (<150) 08/09/17 06:16 Cholesterol 113 mg/dL (<200) 08/09/17 06:16 LDL Cholesterol Direct 65 mg/dL (75-193) L 08/09/17 06:16 HDL Cholesterol 36 mg/dL (23-92) 08/09/17 06:16 Carcinoembryonic Ag 3.0 ng/mL (0.0-4.7) 08/09/17 06:16 Prostate Specific Ag 1.3 ng/mL (0.0-4.0) 08/09/17 06:16 Vitamin B12 602 pg/mL (232-1245) 08/09/17 06:16 TSH 0.37 uIU/ml (0.34-5.60) 08/09/17 06:16 RPR NONREACTIVE (NONREACTIVE) 08/09/17 06:16 HIV 1&2 Antibody Screen Non Reactive (Non Reactive) 08/09/17 06:16 - Physical Exam Vitals and I&O: Vital Signs Temp 97.8 F 08/11/17 07:45 Pulse 67 08/11/17 07:45 Resp 18 08/11/17 07:45 BP 124/67 08/11/17 07:45 Pulse Ox 96 08/11/17 07:45 Intake & Output 08/10/17 08/11/17 08/11/17 18:59 06:59 18:59 Intake Total 300 930 Balance 300 930 Weight (lbs) 58.06 kg 59.738 kg Intake: Intake, IV Amount 930 D5-0.45NS 1,000 ml @ 100 930 mls/hr IV .Q10H [facility] Rx#: [id number] Oral 300 Other: # Voids 0 # Bowel Movements 0 Stool Characteristics Soft Active Medications: Current Medications Acetaminophen (Tylenol) 650 mg PO Q4H PRN PRN Reason: pain/fever >101 Stop: 10/07/17 19:38 Albuterol/Ipratropium (Duoneb Neb) 3 ml HHN Q4HRT [facility] Stop: 10/07/17 22:59 Diphenhydramine HCl (Benadryl) 25 mg PO QID PRN PRN Reason: Itching OR INSOMNIA Stop: 10/07/17 19:37 Last Admin: 08/10/17 20:48 Dose: 25 mg Dextrose/Sodium Chloride (D5-0.45ns) 1,000 mls @ 100 mls/hr IV .Q10H [facility] Stop: 10/09/17 19:44 Last Admin: 08/11/17 06:06 Dose: 100 mls/hr General: no acute distress, cachectic HEENT: atraumatic, normocephalic, PERRLA, EOMI, moist mucous membrane Neck: supple, no thyromegaly Cardiovascular: S1S2, regular Lungs: clear to auscultation bilaterally, clear to percussion Abdomen: soft, no tender, no distended, no hepatomegaly Extremities: no cyanosis, no clubbing, no edema Neurological: awake, alert, oriented Skin: intact Infectious Disease Assmt/Plan - Problem List Patient Problems: All Active Problems Alzheimer disease (Acute) G30.9 Dehydration (Acute) E86.0 Dementia (Acute) F03.90 Electrolyte abnormality (Acute) E87.8 Failure to thrive (Acute) [id number] Hypokalemia (Acute) E87.6 - Assessment Assessment: 1. Failure to thrive. 2. Protein-calorie malnutrition. 3. History of hypertension. 4. Bronchitis. - Plan Plan: CPM. Nutritional Asmnt/Malnutr-PDOC - Dietary Evaluation Malnutrition Findings (Please click <Entered> for more info): Nutritional Asmnt/Malnutrition Start: 08/09/17 16: 50 Text: Status: Active Freq: Document 08/09/17 16:50 LCHENG (Rec: 08/09/17 17:02 LCHENG [email or web address]) Nutritional Asmnt/Malnutrition Patient General Information Nutritional Screening High Risk Consult Diagnosis hypokalemia, dementia, FTT, lethargy Pertinent Medical Hx/Surgical Hx HTN, PUD/GERD, dementia, alzheimer/s, Tracheostomy Subjective Information Pt seen lying in bed, at bedside assisting with lunch. reported pt was eating ok , consumed 100% of breakfast this morning. Current Diet Order/ Nutrition Support pureed, ensure TID with meals, honey thick liquid Pertinent Medications duoneb Pertinent Labs 08/09 Na 142, K 3.7, Cl 112, BUN 13, Cr 0.5, Glucose 87, Ca 8.6 Nutritional Hx/Data Height 1.8 m Height (Calculated Centimeters) 180.3 Current Weight (lbs) 58.196 kg Weight (Calculated Kilograms) 58.2 Weight (Calculated Grams) 78133.9 [place] Body Weight 172 % [place] Body Weight 75 Body Mass Index (BMI) 17.9 Weight Status Underweight GI Symptoms GI Symptoms None Last BM no record Difficult in: None Skin Integrity/Comment: scar to coccyx Estimated Nutritional Goals BEE in Kcals: Using Current wt Calories/Kcals/Kg 30-35 Kcals Calculated 7464-2349 Protein: Using Current wt Protein g/k.2 Protein Calculated 70-81 Fluid: ml 1745-2029ml (1ml/kcal) Nutritional Problem 1. Problem Problem underweight Etiology possible poor PO intake d/t illness Signs/Symptoms: BMI 17.9 Malnutrition Alert Body Fat Depletion (Non-Severe) Mild Depletion Intervention/Recommendation Comments 1. Continue with current diet as ordered. Encouraged calorie dense food for gradual wt gain. 2. Monitor PO intake, wt, labs and skin integrity 3. F/U as high risk in 2-3 days, 08/11-08/12 Expected Outcomes/Goals Expected Outcomes/Goals 1. PO intake to meet at least 75% of nutritional needs. 2. Wt stability or change toward to IBW, skin to remain intact, labs to approach WNL.
--- NOTE | 2017-08-11 14:10 | Consultation ---
DATE OF CONSULTATION: UROLOGY CONSULTATION REASON FOR CONSULTATION: Seen for possible anuria and urinary retention. HISTORY OF PRESENT ILLNESS: The patient is a 62-year-old admitted for failure to thrive, cough and congestion and fever. He has recovered from these problems over the last 3 days and recently was noted to have no urine for few hours, at which time a Hall was placed, but there was again no urine for several hours later on as well; therefore, the consult was requested. The patient is unable to provide any history due to significant dementia. However, the Hall suddenly started to put out a lot of urine, after which the catheter was removed about 18 hours ago and he has been urinating spontaneously in the diaper without any problems. His medical history is significant for hypertension, peptic ulcer disease, and dementia. REVIEW OF SYSTEMS: The patient came in for cough and congestion and fever, which have now resolved. He also has altered level of consciousness, which is unchanged. There is no chest pain or shortness of breath that is seen in the hospital and no abdominal pain, vomiting or diarrhea. FAMILY HISTORY: Unremarkable. MEDICATIONS: Before admission were Tylenol, albuterol inhaler and Benadryl; currently on very similar medications and no significant change. PHYSICAL EXAMINATION: GENERAL: He is nonverbal and somewhat stiff and has appearance of Parkinson's patient. VITAL SIGNS: Temperature 97.7, heart rate 67, blood pressure 110/87. No fever is seen over the last 2 days. HEAD AND NECK: Unremarkable. No jaundice, thyroid enlargement or lymph node mass or carotid bruit. CHEST: Symmetrical without masses. LUNGS: Clear. No rales or rhonchi. HEART: Sounds normal in sinus rhythm, no murmur. ABDOMEN: Soft and nontender. No organomegaly, mass, or hernia. Bladder is not distended. GENITALIA: Normal male, no scrotal masses. Testes descended. Meatus adequate. Rectally, rectum is full of soft stool. Prostate is flat and small, less than 20 g at the most and benign without nodules. EXTREMITIES: No edema or lymphadenopathy. NEUROLOGIC: Difficult to test. LABORATORY DATA AND DIAGNOSTIC STUDIES: Creatinine has been stable throughout, currently 0.3, yesterday 0.5 and before that the same; BUN also stable starting at 17 and now 10; electrolytes are normal and white count is normal at 7.1, hemoglobin 11.8 and stable as well. Blood cultures negative. Chest x-ray on admission showed no acute changes. IMPRESSION: Transient low urine output, may be retention that resolved spontaneously with the help of the Hall and requires no further treatment or investigation at this point, especially because the bladder is not distended and he has been urinating enough and without any problems. At the same time, renal function is also stable over the last 2 days even though the Hall was taken out last night. If creatinine increases or the patient develops retention, he could be evaluated with a cystoscopy at that point. Thank you for the referral. JOB# [id number]
[2017-08-11] MEDS ORDERED: Probiotic Screen MC PRN (15:26)
--- NOTE | 2017-08-11 17:25 | Progress Notes ---
DATE: 08/11/2017 SUBJECTIVE: The patient was seen in his room, lying in the bed. The patient is asleep, but easily arousable. The patient is a poor historian due to medical condition. Appears to be comfortable, in no acute distress. OBJECTIVE: VITAL SIGNS: Temperature 98.3, heart rate 58, respirations 16, blood pressure 128/70, 100% on room air. HEENT: Head is atraumatic and normocephalic. Eyes: Bilateral conjunctivae are clear. Bilateral pupils are equally round and reactive. NECK: Supple. No JVD. CARDIOVASCULAR: S1 and S2, without murmur. PULMONARY: Clear to auscultation. GASTROINTESTINAL: Soft and nontender without guarding. Positive bowel sounds. MUSCULOSKELETAL: No clubbing, no cyanosis noted. ASSESSMENT: 1. Alzheimer dementia. 2. Dysphagia. 3. Anorexia. 4. Failure to thrive. JOB# [id number]
--- NOTE | 2017-08-11 17:53 | Progress Notes ---
DATE: 08/11/2017 SUBJECTIVE: The patient was seen in his room lying in a bed. The patient is asleep, but easily arousable. The patient is a poor historian due to medical condition. Otherwise, the patient appears to be comfortable, in no acute distress. OBJECTIVE: VITAL SIGNS: Temperature 98.8, heart rate of 58, respirations 16, blood pressure 128/70, and 100% on room air. HEENT: Head is atraumatic and normocephalic. Eyes: Bilateral conjunctivae are clear. Bilateral pupils are equally round and reactive. NECK: Supple. No JVD. CARDIOVASCULAR: S1 and S2 without murmur. PULMONARY: Clear to auscultation. GASTROINTESTINAL: Soft and nontender without guarding. Positive bowel sounds. MUSCULOSKELETAL: No clubbing, no cyanosis noted. ASSESSMENT: 1. Alzheimer dementia. 2. Dysphagia. 3. Anorexia, failure to thrive. 4. Dehydration. 5. Cachexia. 6. Bronchitis. PLAN: According to the nurses, last night the patient had episode of decreased urine output despite reinsertion of a Hall catheter. No output was noted, but once they changed the Hall, they noted some urine output afterwards, so we will obtain a urology consult and we will continue the treatment. We are also going to monitor the patient's nutritional status and put the patient on aspiration precaution. Treatment plan were discussed with the patient's nurse. Treatment plans were discussed with Dr. Mojica. JOB# [id number]
== END 2017-08-11 19:13 | disposition home or self-care (01) | DRG 720 ==
LOC: ER 13:34 → MSI 17:45
PROVIDERS: ADMIT Internal Medicine; ATTEND Internal Medicine
DX: A41.9 Sepsis, unspecified organism (principal); E44.0 Moderate protein-calorie malnutrition; R64 Cachexia; Z93.0 Tracheostomy status; G30.9 Alzheimer's disease, unspecified; F02.80 Dementia in other diseases classified elsewhere, unspecified severity, without behavioral disturbance, psychotic disturbance, mood disturbance, and anxiety; R62.7 Adult failure to thrive; E86.0 Dehydration; E87.6 Hypokalemia; I10 Essential (primary) hypertension; Z66 Do not resuscitate; J40 Bronchitis, not specified as acute or chronic; K21.9 Gastro-esophageal reflux disease without esophagitis; F17.210 Nicotine dependence, cigarettes, uncomplicated; Z68.1 Body mass index [BMI] 19.9 or less, adult; Z82.49 Family history of ischemic heart disease and other diseases of the circulatory system
CPT/HCPCS: 36415-UA; 71045-TC; 80048-TC; 80053-TC; 80061-TC; 82378-90; 82550-TC; 82607-90; 83605; 83880-TC; 84153-90; 84443-TC; 84484-TC; 85025-TC; 85610-TC; 85730-TC; 86592-TC; 87389-90; 93005; 94760; J0696; J7030; Z7610

== ENCOUNTER 2017-09-28 18:55 | Inpatient (IN) | payer MEDICAID ==
[2017-09-28] MEDS ORDERED: Sodium Chloride 0.9% 1,000 ML IV ONE ×2 (19:56→21:06)
[2017-09-28] MEDS ORDERED: Cefepime 2 GM in Sodium Chloride 0.9% 100 ML IV ONE ×2 (19:57→20:17)
[2017-09-28] MEDS ORDERED: Meropenem 1 GM in Sodium Chloride 0.9% 100 ML IV ONE ×2 (20:00→20:18)
[2017-09-28] MEDS ORDERED: Pantoprazole 40 mg EC Tab PO STA (20:11)
[2017-09-28 20:16] LABS: MANUAL DIFF REQUIRED? YES
[2017-09-28 20:19] LABS: EOSINOPHILE ABSOLUTE 0.1 Th/cmm (0.1-0.4); HEMATOCRIT 49.3 % (41.0-60); HEMOGLOBIN 16.1 gm/dL (12-16); LYMPHOCYTE ABSOLUTE 0.9 Th/cmm (1.5-3.0); MEAN CELL VOLUME 89.3 fl (80-99); MEAN CORPUSCULAR HEMOGLOBIN 29.2 pg (26.0-30.0); MEAN CORPUSCULAR HGB CONC 32.7 pg (28.0-36.0); MEAN PLATELET VOLUME 11.7 fl; MONOCYTE ABSOLUTE 0.6 Th/cmm (0.3-1.0); NEUTROPHILE ABSOLUTE 21.9 Th/cmm (1.8-8.0); PLATELET COUNT 297 Th/cmm (150-400); RED BLOOD COUNT 5.52 Mil/cmm (4.30-5.70); RED CELL DISTRIBUTION WIDTH 16.1 % (11.5-20.0)
[2017-09-28 20:35] LABS: ALBUMIN 3.6 gm/dL (4.2-5.5); ANION GAP 12.3 (7.0-16.0); BILIRUBIN,TOTAL 1.2 mg/dL (0.3-1.0); CALCIUM SERUM 9.7 mg/dL (8.6-10.3); CARBON DIOXIDE 23.2 mEq/L (21.0-31.0); CREATININE - SERUM 1.8 mg/dL (0.7-1.3); GFR AFRICAN-AMERICAN 49.3 ml/min (>90); GFR NON AFRICAN-AMERICAN 40.7 ml/min; MAGNESIUM 3.1 mg/dL (1.9-2.7); POTASSIUM SERUM 3.5 mEq/L (3.5-5.1); TOTAL PROTEIN,SERUM 7.1 gm/dL (6.0-8.3)
[2017-09-28 21:04] LABS: CHOLESTEROL 109 mg/dL (<200); HDL -HIGH DENSITY LIPOPROTEIN 35 mg/dL (23-92); TRIGLYCERIDES 133 mg/dL (<150)
[2017-09-28 21:09] LABS: ALB/GLOB RATIO 1.1 (1.0-1.8); ALBUMIN 3.6 gm/dL (4.2-5.5); BILIRUBIN,DIRECT 0.2 mg/dL (0.0-0.2); BILIRUBIN,TOTAL 1.2 mg/dL (0.3-1.0); TOTAL PROTEIN,SERUM 6.8 gm/dL (6.0-8.3)
[2017-09-28 21:23] LABS: TOTAL CELLS COUNTED 100; WHITE BLOOD COUNT 23.5 Th/cmm (4.8-10.8)
[2017-09-28 21:24] LABS: BAND NEUTROPHILE 1 % (0-10); BASOPHIL 0 % (0-3); EOSINOPHIL 0 % (0-5); LYMPHOCYTE 6 % (20-50); MONOCYTE 2 % (2-10); NEUTROPHILS 91 % (40-80)
--- NOTE | 2017-09-28 21:54 | ER Physician Documentation ---
DATE OF SERVICE: A 62-year-old male DNR patient came to the Emergency Room, seen by Dr. Mojica. The patient is 59.421 kilograms. Body surface area is 1.76 kilograms. BMI is 18.3 kilograms per square meter. This is a 62-year-old male patient came from [facility]. He is a tremendously malnourished as good as bones and some muscles, some fat, but very dehydrated. Heart running faster. I examined him in the hallway as there were no beds available and we are to work faster to examine him over there. The patient's vital signs were taken by the triage nurse. I was told that the patient's BUN was 72 and sodium was increased to 160. That means the patient has pre-renal azotemia, probably acute tubular necrosis, most likely he is septic. White count came back to be 22,000 that is the only number I have it and the nurse reported that to me and vital signs taken by the triage nurse shows temperature to be 99.9, pulse of 127. When auscultated the heart, the heart was running very fast, more than 127, I believe it was close to 140 beats per minute. This was at 8:25 p.m., which is time 2025 hours. Blood pressure was 115/69, I believe by now it might have gone down. Oxygen saturation is 92. I instructed the nurse to please give him 1000 mL of normal saline as fast as they can. The lab girl nurse was kind enough to come and draw the blood in the hallway and I am grateful to her that he is cooperating with us to get the things rolling faster. The patient's height is 5 feet 1 inch and weight is 131 pounds. the patient's physician is Dr. Mojica. Dr. Mojica's office address is [address] [place] [address], [address]. Telephone number is [phone] and dentist is Aiden Ramirez [address] [place] [address], office number is [phone]. Tanning Consultant is Dr. Jim Palma. Mortuary is [facility]. Pharmacy is [facility], located at [address] [place] [address]. The patient is not in a position to give any history. He is unaware. He is totally unconscious status. The diagnosis with which the patient was referred over here included the following; he was diagnosed to have Alzheimer disease, E44.0. Moderate protein caloric malnutrition, R27.8. Lack of coordination, M62.81. Muscle weakness, generalized, A41.89. Other specified sepsis. The patient belongs to [place] [employer] Insurance address is [id number]. [place], [place] [address]. Some of the report that came I will mention it, but the patient is not in a position to give any history except the ones are mentioned above. History of present illness could not be obtained. On examination, the patient is comatose status. He is extremely emaciated, thin, poor muscle mass and looks like he had a bowel movement and smelling badly. Bones and skin are seen. Hardly any muscle mass is noted. No edema over the legs, no cyanosis, no petechia. No ecchymosis. Eyes are open, bulging eyes. We have to check his T3-T4 to see if he has hyperthyroidism or not. Looks like the patient is septic. White count is up, most likely lactic acidosis would be up, we might have to follow the protocol for septic protocol. The carotids are normal. Normal uplift without any bruit. No cyanosis, petechia or ecchymosis. Chest has anteriorly clear entry, cannot turn him on the side, but on turning him to the side as much as he can be heard some crackles and rales. No definite rhonchi or wheezing could be appreciated. Abdomen is essentially soft, scaphoid, benign and negative. Central nervous system is comatose status, cannot utter any word, maybe had a stroke before or whether he has epilepsy or seizure disorder cannot tell. CVA. There is no tenderness. No Hall catheter. No Perm-A-Cath. No sites or catheters for dialysis. The patient is not getting any IV fluids. No Hep-Lock is seen. Costovertebral angle no definite tenderness could be noted. A few days ago on September 28 the lab work done showing white count of 21.5, hemoglobin 16.1, hematocrit 50.6, platelet count of 301,000. Neutrophils is extremely high at 41.8 and lymphocytes are 4.5, monocytes is 3.5. Electrolytes showed sodium to be 159, sodium more than 160, chloride more than 118, BUN 72, and estimated GFR, he is a male patient 53. White count 21.5, neutrophils 91.8. The patient when he was sent from the intermediate, his temperature was 100.4. So the diagnosis with which he came here included: 1. Fever. 2. Poor appetite. 3. Abnormal labs. The patient had bad vital signs and bad WBC count. 4. Prerenal azotemia is present. His calcium level is high at 9.5, some of which could be from dehydration. All movement ratio is 3.7. Estimated GFR 54. The diet that the patient was given was pureed, no added salt, fortified with nectar thick liquid and Resource lactose-free 60 mL by mouth twice a day, ProMod liquid protein supplement 30 mL three times a day, monitor for pain, multivitamin tablet, megestrol acetate 40 mg 1 mL, vitamin C 500 mg twice a day. Tussin DM that is dextromethorphan 10 mg per 5 mL liquid. Initiate RNA for passive range of motion on both lower extremities, RNA to be used as tolerated 5 times a day. Personal alarm in bed, so that the patient stays in bed and does not fall down or get out of the bed. The patient has bilaterally floor mats and patient in bed for security reasons. Padded side rails were given. So I can see extremely good care has been provided over there at the intermediate. Eye health, vision care, etc. were provided. The patient to sit upright for all meals and meds upright for 30 minutes after the food is given. Stool softener, Dulcolax suppository as needed, Fleets enema as needed, Tylenol for pain as needed. DuoNeb p.r.n. for breathing problems, dental evaluation for oral care. Thinks we need to get some blood gas done on this patient to see if the patient needs any other treatment in the form of intubation or DuoNeb treatment. I believe will get those things going for the time being. Thank you again. JOB# [id number]
--- NOTE | 2017-09-28 23:42 | Transfer Summary ---
DATE OF TRANSFER: 09/28/2017 ADDENDUM I got the lab results showing white count of 23.5, hemoglobin 16.1, hematocrit is 49.3, platelet count is 297,000, bands are 1, lymphocytes is ADON, and neutrophils are 91 with extremely high neutrophils with a shift to the left. Potassium is 3.5, chloride is 125, carbon dioxide is 23.2, BUN is 90, creatinine is 1.8. Prerenal azotemia, maybe acute tubular necrosis secondary to sepsis and dehydration. Whole blood lactic acid is 0.82, magnesium is 3.1, total bilirubin is 1.2, direct is 0.20, AST is 9, ALT is 7, alkaline phosphatase 53. BNP is 86.1. Total protein is 6.8, albumin is 3.6, globulin is 3.2, albumin-globulin ratio is 3.2. Triglycerides 133, cholesterol is 109, LDL is 56, HDL is 35. In view of this, the patient was given antibiotics. The patient was given second unit of normal saline, which is going on, somehow it went slow, but 2 antibiotics were already given and the patient is more awake and looking around. The patient will get the third unit of normal saline. I will put it in and Dr. Mojica will be called and the patient will be admitted for sepsis. The etiology of sepsis may be urine, but we do not have any urine report, but once we get that ____. Chest x-ray does not show any evidence of definite pneumonitis. HDL is 35, LDL is 56, and triglycerides 133. Plan is to call Dr. Mojica and admit the patient to the hospital. JOB# [id number]
[2017-09-28] MEDS ORDERED: Sodium Chloride 0.9% 1,000 ML IV SCH (23:45)
[2017-09-29 02:12] VITALS: BP 129/93
[2017-09-29 07:13] LABS: ANION GAP 13.5 (7.0-16.0); CALCIUM SERUM 8.8 mg/dL (8.6-10.3); CARBON DIOXIDE 22.8 mEq/L (21.0-31.0); CHLORIDE 129 mEq/L (98-107); CHOLESTEROL 92 mg/dL (<200); CREATININE - SERUM 1.3 mg/dL (0.7-1.3); GFR AFRICAN-AMERICAN > 60.0 ml/min (>90); GFR NON AFRICAN-AMERICAN 59.3 ml/min; GLUCOSE 152 mg/dL (70-105); HDL -HIGH DENSITY LIPOPROTEIN 27 mg/dL (23-92); POTASSIUM SERUM 3.3 mEq/L (3.5-5.1); TRIGLYCERIDES 122 mg/dL (<150)
[2017-09-29 07:14] LABS: BASOPHILE ABSOLUTE 0.1 Th/cumm (0-0.2); LYMPHOCYTE ABSOLUTE 1.2 Th/cmm (1.5-3.0); MEAN CELL VOLUME 89.6 fl (80-99); MEAN CORPUSCULAR HEMOGLOBIN 29.4 pg (26.0-30.0); MEAN CORPUSCULAR HGB CONC 32.9 pg (28.0-36.0); MEAN PLATELET VOLUME 12.5 fl; MONOCYTE ABSOLUTE 0.7 Th/cmm (0.3-1.0); RED BLOOD COUNT 4.76 Mil/cmm (4.30-5.70); RED CELL DISTRIBUTION WIDTH 15.6 % (11.5-20.0)
[2017-09-29 07:45] LABS: % BASOPHILS 0.6 % (0.0-2.0); % LYMPHOCYTES 5.3 % (20.0-50.0); % NEUTROPHILS 91.1 % (40.0-80.0); HEMATOCRIT 42.6 % (41.0-60); PLATELET COUNT 211 Th/cmm (150-400)
[2017-09-29 07:50] LABS: SODIUM SERUM 162 mEq/L (136-145)
[2017-09-29 07:51] LABS: BUN - UREA NITROGEN 89 mg/dL (7-25)
[2017-09-29] MEDS ORDERED: Sodium Chloride 0.45% 1,000 ML IV SCH (08:00)
[2017-09-29] MEDS ORDERED: Potassium Chloride 20 mEq ER Tab PO ONE (08:00)
[2017-09-29] MEDS ORDERED: Non-Formulary Item 1 EA (Ascorbic Acid [Vitamin C] 500 MG) PO SCH (09:00)
[2017-09-29] MEDS ORDERED: Non-Formulary Item 1 EA (Multivitamin [Multivitamins] 1 CAP) PO SCH (09:00)
[2017-09-29] MEDS ORDERED: Multivitamin Tab PO SCH (09:00)
[2017-09-29] MEDS ORDERED: Meropenem 500 MG in Sodium Chloride 0.9% 100 ML IV SCH (09:00)
--- NOTE | 2017-09-29 09:03 | Diagnostic Imaging Report ---
CHEST X-RAY: AP view INDICATION: Pneumonia COMPARISON: 08/08/2017 FINDINGS: Suboptimal lung volumes are noted. No focal consolidation or effusions. Tortuous aorta is noted. IMPRESSION: Suboptimal lung volumes with no focal consolidation identified.
[2017-09-29] MEDS: Albuterol/Ipratropium Neb 3 ML AERS HHN SCH ×4 (11:23→23:11)
[2017-09-29] MEDS ORDERED: KCL 20mEq/100mL Premix 20 MEQ/100 ML PIGGYBACK IV ONE (12:00)
--- NOTE | 2017-09-29 12:27 | Consultation ---
Consult Note - Consult Note Service Date: 09/29/17 Referring Physician: Claudia Mojica Consult Note: PHYSICIAN Consultation Note: Date of Admission: 09/28/17 Purpose of Consultation: Chief Complaint: Patient LOKESH SOTO was admitted to [facility] Telemetry with SEPSIS,DEHYDRATION,MALNUTRITION. History of Present Illness: Dictated Past Medical History: Allergies Allergy/AdvReac Type Severity Reaction Status Date / Time No Known Allergies Allergy Verified 08/08/17 13:58 Vital Signs Temp 97.7 F 09/29/17 10:54 Pulse 98 09/29/17 11:25 Resp 18 09/29/17 12:13 BP 135/90 09/29/17 10:54 Pulse Ox 99 09/29/17 11:25 Intake & Output 09/28/17 09/29/17 09/29/17 18:59 06:59 18:59 Intake Total 250 Balance 250 Weight (lbs) 47.854 kg Intake: Intake, IV Amount 250 Other: # Voids 2 # Bowel Movements 2 Stool Characteristics Soft Soft Brown Brown Laboratory Results - last 24 hr 09/29/17 09/29/17 09/29/17 06:11 06:11 06:11 WBC 23.0 H* RBC 4.76 Hgb 14.0 Hct 42.6 D MCV 89.6 MCH 29.4 MCHC Differential 32.9 RDW 15.6 Plt Count 211 D MPV 12.5 Neutrophils % 91.1 H Lymphocytes % 5.3 L Monocytes % 3.0 Eosinophils % 0.0 Basophils % 0.6 Sodium 162 H* Potassium 3.3 L Chloride 129 H Carbon Dioxide 22.8 Anion Gap 13.5 BUN 89 H* Creatinine 1.3 Est GFR ( Amer) > 60.0 Est GFR (Non-Af Amer) 59.3 BUN/Creatinine Ratio 68.5 Glucose 152 H Calcium 8.8 Triglycerides 122 Cholesterol 92 LDL Cholesterol Direct 43 L HDL Cholesterol 27 TSH 0.62 Home Medication Medication Instructions Recorded Type RX: Acetaminophen [Tylenol] 650 mg PO Q4HR PRN 08/08/17 History RX: Albuterol/Ipratropium Neb 3 ml HHN Q4HR 08/08/17 History [Duoneb Neb] RX: Diphenhydramine HCL [Benadryl] 25 mg PO QID PRN 08/08/17 History Ascorbic Acid [Vitamin C] 500 mg PO DAILY 09/28/17 History Multivitamin [Multivitamins] 1 cap PO DAILY 09/28/17 History Current Medications Generic Name Dose Route Start Last Admin Trade Name Freq PRN Reason Stop Dose Admin Acetaminophen 650 mg 09/29/17 08:34 Tylenol PO 11/28/17 08:33 Q4HR PRN Fever > 101 Albuterol/Ipratropium 3 ml 09/29/17 12:00 09/29/17 11:23 Duoneb Neb HHN 11/28/17 11:59 3 ml Q4HRT DAO Administration Ascorbic Acid 500 mg 09/29/17 09:00 09/29/17 09:16 Vitamin C PO 11/28/17 08:59 Not Given DAILY DAO Diphenhydramine HCl 25 mg 09/29/17 08:34 Benadryl PO 11/28/17 08:33 QID PRN Insomnia Meropenem 500 mg/ Sodium 100 mls @ 100 mls/hr 09/29/17 09:00 Chloride IV 11/28/17 08:59 Q12H DAO Vancomycin HCl 0.75 gm/ Sodium 250 mls @ 165 mls/hr 09/30/17 08:00 Chloride IV 11/29/17 07:59 Q24HR@0800 DAO Dextrose 1,000 mls @ 125 mls/hr 09/29/17 12:00 D5w IV 11/28/17 11:59 .Q8H DAO Potassium Chloride 20 meq in 100 mls @ 50 mls/hr 09/29/17 12:00 Potassium Chloride IV 09/29/17 13:59 X1 ONE Miscellaneous 1 ea 09/28/17 23:31 Vancomycin Iv Per Pharmacy 11/27/17 23:30 PRN PRN Protocol Multivitamins/Vitamin C 1 tab 09/29/17 09:00 09/29/17 09:16 Theragran PO 11/28/17 08:59 Not Given DAILY DAO Review of Systems: A 12 point ROS was reviewed with the pertinent positive and negatives noted in the HPI. Social History Smoking Status Smoker, status unknown Drug Use UNK Alcohol Use UNK Family Medical History Family Medical History Start: 09/29/17 00: 31 Freq: ONCE Status: Active Document 09/29/17 02:21 KATHIA (Rec: 09/29/17 02:21 KATHIA [id number]) Family Medical History Mother History Unknown Yes Physical Exam: General: HEENT: Neck: Cardio: Respiratory: Abdominal: Genital/Urinary: Extremities: Neurological: Assessment: Plan: Signed, José Miguel Man M.D. [id number]
[2017-09-29] MEDS: Dextrose 5% 1,000 ML IV SCH ×2 (12:29→22:45)
--- NOTE | 2017-09-29 15:03 | History & Physical ---
ADMIT DATE: 09/29/2017 CHIEF COMPLAINT: Generalized weakness and abnormal lab results. HISTORY OF PRESENT ILLNESS: This is a 62-year-old male who was originally admitted from a correction facility through the Emergency Room due to abnormal lab tests and generalized weakness and poor oral intake. REVIEW OF SYSTEMS: GENERAL: This is a 62-year-old male that appears stated. The patient is a poor historian due to current medical condition. HEENT: No headache. No dizziness. EYES: No eye pain, no blurring of vision. NECK: No neck pain. No nuchal rigidity. CHEST: No chest pain. No palpitation. PULMONARY: No coughing. No shortness of breath. GASTROINTESTINAL: No abdominal pain, no constipation, no diarrhea. MUSCULOSKELETAL: No joint pain. No muscle pain. SOCIAL HISTORY: The patient lives in a correction facility prior to hospitalization. PAST SURGICAL HISTORY: Unremarkable. PAST MEDICAL HISTORY: Includes dementia. FAMILY HISTORY: Unremarkable. PHYSICAL EXAMINATION: VITAL SIGNS: Temperature 97.7, heart rate of 104, blood pressure 135/90, respiration 20 and 96% on 4 liters via nasal cannula. HEAD: Head is atraumatic and normocephalic. Eyes: Bilateral conjunctivae are clear. Bilateral pupils equal, round and reactive. NECK: Supple. No JVD. CARDIOVASCULAR: S1 and S2 without murmur. PULMONARY: Clear to auscultation. GASTROINTESTINAL: Soft and nontender without guarding. Positive bowel sounds. MUSCULOSKELETAL: No clubbing. No cyanosis noted. ASSESSMENT: 1. Dehydration. 2. Dementia. 3. Generalized weakness. 4. Poor oral intake. 5. Hypernatremia. PLAN: We will put the patient on D5 half NS at 120 mL per hour. We will put the patient on Hall catheter to monitor the patient's intake and output. We are also going to put patient on NGT for water flushing and also going to monitor patient's intake and output. We are also going to do medication reconciliation accordingly. Treatment plans were discussed with the patient's nurse. Treatment plans were discussed with Dr. Mojica. JOB# [id number]
[2017-09-29 18:52] LABS: CHOLESTEROL 76 mg/dL (<200); HDL -HIGH DENSITY LIPOPROTEIN 24 mg/dL (23-92); TRIGLYCERIDES 115 mg/dL (<150)
--- NOTE | 2017-09-29 23:19 | Consultation ---
DATE OF CONSULTATION: 09/29/2017 REFERRING PHYSICIAN: Dr. Mojica. REASON FOR CONSULTATION: Leukocytosis and sepsis. HISTORY OF PRESENT ILLNESS: The patient is a 62-year-old male with a past medical history of dementia, protein-calorie malnutrition, generalized muscle weakness, dysphagia, brought to the ER for fever with poor appetite. The patient also had leukocytosis with WBC count 21,500. On initial evaluation, the patient's temperature was 99.9 degrees Fahrenheit and WBC count was 23,500. His creatinine was 1.8 and sodium was 157. The patient was admitted with the diagnosis of sepsis and started on vancomycin and meropenem. ID consult was called for further evaluation and management. Meanwhile, the patient was receiving IV fluid. He had some improvement in his leukocytosis up to 23,000. PAST MEDICAL HISTORY: As mentioned above, dementia, protein-calorie malnutrition, generalized muscle weakness, dysphagia, failure to thrive. ALLERGIES: NKDA. MEDICATIONS: See medication reconciliation sheet. Antibiotic riddle, the patient is receiving vancomycin and meropenem. SOCIAL HISTORY: The patient lives at nursing facility. No history of smoking, alcohol or drug use. REVIEW OF SYSTEMS: The patient unable to give any history, so unable to get any history. The patient had a fever at nursing facility, as per the records. No fever at this facility. FAMILY HISTORY: Not available. PHYSICAL EXAMINATION: VITAL SIGNS: Show temperature 97.7 degrees Fahrenheit, pulse 104, respirations 20, blood pressure 135/90. GENERAL: The patient is comfortable, cachectic, not in acute distress. HEENT: Head is normocephalic, atraumatic. Oral cavity moist, pink tongue. Eyes: Pallor is present, no icterus. Pupils, PERRLA, EOMI. Face is symmetrical with a bitemporal wasting. NECK: Supple, no JVD, no carotid bruit. Trachea in midline. CHEST: Bilateral breath sounds. No crackles or wheezing. HEART: S1, S2 within normal limits. Regular rhythm. No murmur, no gallop. ABDOMEN: Soft, nontender, nondistended. Bowel sounds present. Scaphoid. EXTREMITIES: No cyanosis, no clubbing, no edema. NEUROLOGIC: The patient is very lethargic and may be obtunded. LABORATORY DATA: Current lab shows WBC count 23,000, hemoglobin 14, hematocrit 42.6, platelets are 211,000, neutrophils 91%. Sodium 162, potassium 3.3, chloride 129, bicarbonate is 23, BUN is 39, creatinine 1.3, glucose is 152. Chest x-ray suggested no focal consolidation. IMPRESSION: 1. Leukocytosis, reactive versus sepsis. 2. Severe dehydration. 3. Hyponatremia. 4. Acute kidney injury, likely secondary to dehydration. 5. Protein-calorie malnutrition. 6. Severe dementia. 7. Failure to thrive. 8. Generalized weakness. RECOMMENDATIONS: We will check the HIV screen. Discontinue meropenem and start Rocephin. Thank you Dr. Mojica for involving me in taking care of this patient. JOB# [id number]
[2017-09-29] MEDS ORDERED: Norepinephrine 4 mg/4mL Vial IV ONE (23:45)
[2017-09-29] MEDS ORDERED: Sodium Chloride 0.9% 1,000 ML IV ONE (23:50)
--- NOTE | 2017-09-30 00:40 | Consultation ---
DATE OF CONSULTATION: 09/29/2017 AGE OF THE PATIENT: 62 years. SEX: Male. RACE: . HISTORY OF PRESENT ILLNESS: This patient has been brought in from a fpc to the Emergency Room and then admitted here. The patient apparently is markedly cachectic, dehydrated, and does have significant loss of subcutaneous tissue and muscle mass. The patient is also significantly dehydrated. The patient is not able to communicate at all whatsoever. Effort to put in a Hall catheter was not successful. The patient has a condom catheter at present time. On examination, skin turgor very poor. Jugular venous pressure not raised. The patient is keeping his eyes open, I am not sure whether the patient does have a problem with the eyes. Blood pressure last recorded had been 119/70, temperature 98 degree Fahrenheit, heart rate 103 per minute, respiratory rate 18 per minute, and O2 saturation 97%. Jugular venous pressure, as mentioned, has not raised. The patient does not respond to minor stimuli. I talked to the nurse out here. The patient is not really moving spontaneously on his own, but does have some withdrawal present. Chest examination reveals reasonable air entry bilaterally. Few rhonchi. No significant rales noticed at present clinical examination. Heart sounds seem to be regular. EKG shows occasional irregularity. Abdomen is soft, scaphoid. Lower extremities and upper extremities; there does not seem to be any significant tissue and muscle mass over the bones and fascia. Looks like significantly protein-calorie malnourished with significant loss of weight over a period of time. Underlying etiology is not known. Biochemical data available reveals the following; as of today 09/29/2017, sodium 162, potassium 3.3, chloride 129, CO2 content 22.8, anion gap 13.5, glucose 152, BUN 89, creatinine 1.3. TSH done is 0.62. Hemoglobin 14.0 grams percent, WBC count 23,000. Troponin is elevated, but I am not sure what to make out of it under the following circumstances. Other chemistries reveal albumin to be 3.6, globulin to be 3.5, calcium 9.7. SGOT, SGPT essentially normal. Magnesium 3.1, total bilirubin 1.2. Considering that, would suggest at present to hydrate him with hyponatremic solution like D5W, may add some potassium 20 mEq per liter to run at 125 mL per hour for next 2 liters and see how much urine does he make. If possible, if we can put in a Hall catheter, it will be helpful or do a bladder scan and if that is not available, then to get an ultrasound of the abdomen and pelvis so as to know whether there is no obstructive uropathy which may be the cause. Other considerations remain here very strongly mental disorder associated with cachexia, underlying malignancy, also need to do some other studies like vitamin B12 studies and folic acid studies so as to rule out anything associated with that. I expect with the present osmotic hydration, the patient's BUN and creatinine and also sodium chloride would improve which we would follow since at present the blood pressures are reasonable, therefore hopefully things would get better. Need to find out more history of what had been the previous diagnosis and what medications the patient was on. [facility]# [id number]
[2017-09-30] MEDS ORDERED: Norepinephrine 4 mg/4mL Vial IV ONE (01:49)
[2017-09-30] MEDS: Albuterol/Ipratropium Neb 3 ML AERS HHN SCH (03:41)
[2017-09-30] MEDS ORDERED: Atorvastatin Calcium 10 MG TAB PO SCH (09:00)
[2017-09-30] MEDS ORDERED: Aspirin 81mg Chewable Tab PO SCH (09:00)
--- NOTE | 2017-10-04 18:39 | Discharge Summary ---
DATE OF DISCHARGE: 09/30/2017 SUMMARY DATE OF EXPIRATION: 09/30/2017. HOSPITAL COURSE: The patient known to me from previous admission, was admitted for severe failure to thrive. All the workup was negative and the family did not want any more workup and the patient was in severe dehydration and acute renal failure. The patient was, treated, was sent back to the detention, and again the patient was admitted because of severe leukocytosis, severe dehydration, hyponatremia, acute kidney injury, dementia, failure to thrive, and the patient went into sepsis, septic shock and the patient . FINAL DIAGNOSES: Fatal cardiopulmonary arrest secondary to sepsis secondary to pneumonia secondary to failure to thrive and severe dementia, acute renal failure. [facility]# [id number]
== END 2017-09-30 05:50 | disposition expired | DRG 720 ==
LOC: ER 18:55 → TELE 22:49 → ICU 09-30
PROVIDERS: ADMIT Internal Medicine; ATTEND Internal Medicine
DX: A41.89 Other specified sepsis (principal); N17.9 Acute kidney failure, unspecified; E44.0 Moderate protein-calorie malnutrition; R64 Cachexia; E87.0 Hyperosmolality and hypernatremia; J18.9 Pneumonia, unspecified organism; G30.9 Alzheimer's disease, unspecified; F02.80 Dementia in other diseases classified elsewhere, unspecified severity, without behavioral disturbance, psychotic disturbance, mood disturbance, and anxiety; Z66 Do not resuscitate; E86.0 Dehydration; M62.81 Muscle weakness (generalized); R62.7 Adult failure to thrive; E87.1 Hypo-osmolality and hyponatremia; Z68.1 Body mass index [BMI] 19.9 or less, adult; I46.8 Cardiac arrest due to other underlying condition
CPT/HCPCS: 36415-UA; 71045-TC; 80048-TC; 80053-TC; 80061-TC; 80076-TC; 83036-90; 83605; 83735-TC; 83880-TC; 84439-90; 84443-TC; 84484-TC; 85007-TC; 85025-TC; 85027-TC; 86141-TC; 86703-TC; 87086-90; 93005; 94760; 96375; J0692; J0696; J1160; J1644; J2185; J2370; J3370; J3480; J7030; J7070; X6452; Z7610